=== PATIENT | male | born 1980 | race Caucasian/White ===

== ENCOUNTER → 2016-11-24 | Outpatient (REF) ==
[~2016-11-24] MED LIST: CLEOCIN HCL300 MG PO; NORCO 325 MG-51 TAB PO
[2016-12-15 12:35] LABS: DNA SPECIMEN COLLECTION NO RESULTS EXPECTED
== END ==
LOC: COL.LAB 10:56
DX: Z53.9 Procedure and treatment not carried out, unspecified reason (principal)